=== PATIENT | female | born 1995 ===

== ENCOUNTER 2018-09-18 05:31 | Day surgery (SDC) | payer OTHER ==
[~2018-09-18] VITALS: Ht 182.9 cm; Wt 122.5 kg
[2018-09-18] VITALS (13 sets, daily range): BP systolic 117–148; BP diastolic 66–82
[2018-09-18] MEDS ORDERED: ZYRTEC10 MG ORAL (06:03)
[2018-09-18] MEDS ORDERED: ceFAZolin sod 1 GM in NS 55 ML IVPB ONE (07:00)
[2018-09-18] MEDS ORDERED: LR 1000ml 1,000 ML IVLG SCH (07:01)
--- NOTE | 2018-09-18 07:01 | Anethesia Preoperative Eval ---
Anesthesia Pre-op PMH/ROS General Date of Evaluation: Sep 18, 2018 Anesthesiologist: Guilherme ASA Score: ASA 2 Mallampati Score Class I : Soft palate, uvula, fauces, pillars visible Class II: Soft palate, uvula, fauces visible Class III: Soft palate, base of uvula visible Class IV: Only hard plate visible Mallampati Classification: Class II Surgeon: Zackary Diagnosis: Gender identity disorder Surgical Procedure: Bilteral mastectomy with free nipple graft Anesthesia History: none Family History: no anesthesia problems Allergies: Coded Allergies: No Known Allergies (Unverified , 09/18/18) Medications: see eMAR Patient NPO?: Yes NPO Date: Sep 17, 2018 NPO Time: 22:00 Past Medical History Cardiovascular: Denies: HTN, CAD, [place], valve dz, arrhythmia, other Pulmonary: Reports: asthma; Denies: COPD, PAVEL, other Gastrointestinal/Genitourinary: Reports: GERD; Denies: CRI, ESRD, other Neurologic/Psychiatric: Reports: depression/anxiety; Denies: dementia, CVA, TIA, other Endocrine: Denies: DM, hypothyroidism, steroids, other HEENT: Denies: cataract (L), cataract (R), glaucoma, JACKSON (L), JACKSON (R), other Hematology/Immune: Denies: anemia, DVT, bleeding disorder, other Musculoskeletal/Integumentary: Denies: OA, RA, DJD, DDD, edema, other Other: obesity PSxH Narrative: Denies Anesthesia Pre-op Phys. Exam Physician Exam Last Vital Signs Date Time Temp Pulse Resp B/P (MAP) Pulse Ox O2 Delivery O2 Flow Rate FiO2 09/18/18 06:12 Room Air 09/18/18 06:09 98.0 71 18 148/82 97 Constitutional: NAD Cardiovascular: RRR Respiratory: CTA Airway Exam Mallampati Score: Class II MO: full Neck: short obese ROM: full Anesthesia Pre-op A/P Labs see chart Urine Test Test 09/18/18 05:45 Urine HCG, Qualitative Negative (NEGATIVE) Risk Assessment & Plan Assessment: ASA II Plan: GA Status Change Before Surgery: No Pre-Antibiotics Drug: Ance 2g Given Within 1 Hr of Incision: Yes Phyllis Gómez MD Sep 18, 2018 07:01
[2018-09-18] MEDS ORDERED: Dyna-Hex 2% Top Sol 2oz TOPIC ONE (07:06)
[2018-09-18] MEDS ORDERED: Lidocaine 1% 10mg/ml/Epi 0.005mg/ml 30ml vial INJ ONE (07:06)
[2018-09-18] MEDS ORDERED: Bacitracin Oint 15gm Tube TOPIC ONE (07:06)
[2018-09-18] MEDS ORDERED: Bupivacaine 0.25% Inj 30ml INJ ONE (07:06)
--- NOTE | 2018-09-18 07:11 | Pre-Procedure Note/Attestation ---
Pre-Procedure Note/Attestation Complete Prior to Procedure Planned Procedure: bilateral Indications for Procedure Pre-Operative Diagnosis: gender identity disorder Attestation I attest that I discussed the nature of the procedure; its benefits; risks and complications; and alternatives (and the risks and benefits of such alternatives ), prior to the procedure, with the patient (or the patient's legal nutrition representative). I attest that, if there was a reasonable possibility of needing a blood transfusion, the patient (or the patient's legal nutrition representative) was given the [facility] standardized written summary, pursuant to the [place] Blood Safety Act ([place] Health and Safety Code # 1645, as amended). I attest that I re-evaluated the patient just prior to the surgery and that there has been no change in the patient's H&P, except as documented below: Fantasma Raymundo MD Sep 18, 2018 07:11
[2018-09-18] MEDS ORDERED: Midazolam 2mg/2ml Inj IVP PRN (07:15)
[2018-09-18] MEDS ORDERED: Metoclopramide 10mg/2ml Inj IVP PRN (07:15)
[2018-09-18] MEDS ORDERED: fentaNYL 100 mcg/2 mL IV PRN (07:15)
[2018-09-18] MEDS ORDERED: LORazepam Inj 2mg/ml 1ml IV PRN (07:15)
[2018-09-18] MEDS ORDERED: DiphenhydrAMINE 50mg/ml Inj IVP PRN (07:15)
[2018-09-18] MEDS ORDERED: Hydromorphone 0.5mg/0.5ml inj IVP PRN (07:15)
[2018-09-18] MEDS ORDERED: Muri-Lube ONE ×2 (07:15→09:42)
[2018-09-18] MEDS ORDERED: Midazolam 2mg/2ml Inj ONE (07:17)
[2018-09-18] MEDS ORDERED: fentaNYL 100 mcg/2 mL IV ONE (07:17)
[2018-09-18] MEDS ORDERED: Propofol 200mg/20ml IV ONE ×2 (07:17→07:46)
[2018-09-18] MEDS ORDERED: Lidocaine 1% MPF 10mg/ml 5ml ONE (07:17)
[2018-09-18] MEDS ORDERED: Metoclopramide 10mg/2ml Inj ONE (07:18)
[2018-09-18] MEDS ORDERED: Dexamethasone 4mg/ml vial ONE (07:18)
[2018-09-18] MEDS ORDERED: NS Irrig 1000ml ONE (07:30)
[2018-09-18] MEDS ORDERED: Zemuron 50mg/5ml Inj IV ONE (07:30)
[2018-09-18] MEDS ORDERED: LR 1000ml ONE (07:30)
[2018-09-18] MEDS ORDERED: Sterile Water For Irrig 2000ml IRRIG ONE (07:30)
[2018-09-18] MEDS ORDERED: NS Irrig 1000ml IRRIG ONE ×2 (07:45→08:10)
--- NOTE | 2018-09-18 10:51 | Operative Note - PDOC ---
Operative Note Operative Note Date of Operation/Procedure: Sep 18, 2018 Pre-op Diagnosis: gender identity disorder Procedure: bilateral mastectomy with bilateral nipple areola reconstruction Post-op Diagnosis: same as pre-op Surgeon: Zackary Anesthesiologist: Guilherme Anesthesia: general Specimen: yes - 1) right breast, 2) left breast Complications: none Condition: stable Estimated Blood Loss: volume - 50 cc Drains: CRYSTAL - x2 Implant(s) used?: No Fantasam Raymundo MD Sep 18, 2018 10:51
--- NOTE | 2018-09-18 10:52 | Discharge Instructions ---
Discharge Instructions Discharge Instructions Follow up with: Dr. Raymundo September 22 Diet: regular Resume Normal Activity?: Yes Activity: ambulate For Surgical Patients Dressing Care: keep dry and clean August shower: No - sponge bathe only For Congestive Heart Failure Reminder Report to your physician any weight gain of 5 pounds or more in one week. Fantasma Raymundo MD Sep 18, 2018 10:52
--- NOTE | 2018-09-18 10:54 | Immediate Post-Op Evaluation ---
Immediate Post-Op Evalulation Immediate Post-Op Evalulation Procedure: Bilateral breast mastectomy with free nipple graft Date of Evaluation: Sep 18, 2018 Time of Evaluation: 10:54 IV Fluids: 1.1L Blood Products: 0 Estimated Blood Loss: 25 Urinary Output: 0 Blood Pressure Systolic: 122 Blood Pressure Diastolic: 71 Pulse Rate: 84 Respiratory Rate: 16 O2 Sat by Pulse Oximetry: 99 Temperature (Fahrenheit): 97 Pain Score (1-10): 0 Nausea: No Vomiting: No Complications 0 Patient Status: awake, reacts, patent, none Hydration Status: adequate Drug: Ancef 2g Given Within 1 Hr of Incision: Yes Phyllis Gómez MD Sep 18, 2018 10:54
--- NOTE | 2018-09-18 10:55 | 48 Hour Post Anesthesia Eval ---
Post Anesthesia Evaluation Procedure: Bilateral breast mastectomy with free nipple graft Date of Evaluation: Sep 18, 2018 Airway: patent Nausea: No Vomiting: No Pain Intensity: 0 Hydration Status: adequate Cardiopulmonary Status: at baseline Mental Status/LOC: patient returned to baseline Post-Anesthesia Complications: 0 Follow-up care needed: ready to discharge Phyllis Gómez MD Sep 18, 2018 10:55
[2018-09-18] MEDS ORDERED: Tylenol #3 tab (300mg/30mg) ORAL PRN (11:00)
[2018-09-18] MEDS ORDERED: HYDROmorphone 1mg/ml Carpuject SUBQ PRN (11:00)
[2018-09-18] MEDS ORDERED: HYDROcodone/Acetamin 5/325 tab ORAL PRN (11:00)
[2018-09-18] MEDS ORDERED: D5 1/2NS 1,000 ML IV SCH (15:00)
--- NOTE | 2018-09-18 18:45 | Operative Note - Dictated ---
DATE OF OPERATION: 09/18/2018 PREOPERATIVE DIAGNOSIS: Gender identity disorder. POSTOPERATIVE DIAGNOSIS: Gender identity disorder. PROCEDURES: 1. Bilateral mastectomy. 2. Bilateral nipple areola reconstruction. SURGEON: Fantasma Raymundo M.D. ANESTHESIA: General. ESTIMATED BLOOD LOSS: 50 mL. SPECIMENS: 1. Right breast. 2. Left breast. DRAINS: A 15-[place] Shashank x2. COMPLICATIONS: None. CONDITION TO RECOVERY ROOM: Stable. INDICATION FOR PROCEDURE: This is a very pleasant 23-year-old trans-male who desires top surgery mastectomy as part of his transition. He has the appropriate letter of recommendation from his therapist and meets all WPATH criteria for top surgery. I have discussed the risks, benefits, and alternatives to the procedure with him including, but not limited to, bleeding, infection, scarring, nerve injury, asymmetry, contour deformity, hematoma, seroma, loss of nipple sensation, loss of nipple graft and need for additional surgery including revisions. I discussed the higher likelihood of complications due to his higher BMI and size of his breasts. I discussed the orientation of the incision and the unpredictable nature of scarring. No guarantees were made regarding the outcome. All of his questions have been answered to the best of my ability. He verbalized understanding with everything that we discussed and wishes to proceed. DESCRIPTION OF PROCEDURE: The patient was identified in the preoperative holding area and marked in the standing position. He was then brought to the operating room where he was placed in the supine position on the operating room table with his arms extended on arm boards. All bony prominences were adequately padded. Sequential compression devices were placed and intravenous antibiotics were administered. After induction of anesthesia, the patient's chest was prepped and draped in sterile fashion. Starting on the left breast first, the nipple-areola complex was placed on manual stretch and a hamilton measuring 2.5 centimeters in diameter was drawn out centered around the nipple. Next, the subdermal plane within this marking was infiltrated with 3 mL of 1% lidocaine with epinephrine. I then used a 15 blade scalpel to incise the areolar marking and proceeded to harvest a full-thickness nipple-areola graft. The graft was subsequently defatted, wrapped in wet gauze and placed on the back table. I then used a 10 blade scalpel to make the inframammary fold incision. Dissection proceeded down to the level of the pectoralis major fascia. I then made the superior breast incision using a 10 blade scalpel and dissected down to the level of Enma's fascia. Skin Rakes were used to retract the skin and a plane of dissection was created between the subcutaneous tissue and breast parenchyma heading in a superior direction toward the level of the clavicle. Afterwards, the breast parenchyma was then elevated off of the pectoralis major fascia proceeding from a medial to a lateral direction. The specimen was passed off the table. Hemostasis was achieved and the wound was irrigated with saline. I then placed a 15-[place] Shashank drain within the wound and brought it out through a separate stab incision and secured it using 2-0 silk suture. Skin nitin were then used to temporarily reapproximate the skin. I then shifted my attention to the contralateral side where the identical procedure was performed. The patient was then sat up on the operating room table and it appeared that he had very reasonable symmetry between the two sides of his chest. A marking pen was then used to draw out the proposed location of the new nipple-areola complex on each side of the chest and these markings were confirmed using direct measurements. The patient was then placed back in the supine position. On each side of the chest, the skin nitin were removed and closure was performed using interrupted 0 Vicryl suture for the Enma's fascia layer followed by interrupted 3-0 PDS suture for this deep dermal layer and then a running 3-0 Monocryl subcuticular suture for the skin. Next, I then proceeded with the nipple areola reconstruction portion of procedure. Starting on the left breast first, I incised the river-areolar marking using a 15 blade scalpel. I then proceeded to de-epithelialize the intervening skin. The left full-thickness nipple areola graft was then brought out and inset on to the de-epithelialized area using a running 5-0 fast-absorbing suture. Several 2-0 silk suture ties were placed around the periphery of the full-thickness graft. The skin graft bolster was fashioned and secured into place over the graft using a 2-0 silk suture ties. I then shifted my attention to the right breast where the identical procedure was performed. Next, 13 mL of 0.25% plain Marcaine were injected into each of the incisions. Steri-Strips and sterile dressings were then applied. The patient tolerated the procedure well and was sent to the recovery room in stable condition. All instrument, sharp, and sponge counts were correct at the conclusion of the case. Fantasma Raymundo M.D. DR: SABA JOB#: [id number] CC: MARRY
== END 2018-09-18 13:10 | disposition home or self-care (01) ==
LOC: SUR 05:31
DX: F64.9 Gender identity disorder, unspecified (principal); K21.9 Gastro-esophageal reflux disease without esophagitis; F32.9 Major depressive disorder, single episode, unspecified; F41.9 Anxiety disorder, unspecified; E66.9 Obesity, unspecified; Z68.36 Body mass index [BMI] 36.0-36.9, adult
CPT/HCPCS: 19303; 19350; 81025; J0690; J1100; J1170; J2250; J2405; J2704; J2765; J3010; J3490; 94003; 94150